=== PATIENT | male | born 1995 | race Caucasian/White ===

== ENCOUNTER 2016-04-26 23:31 | Emergency (ER) | payer OTHER ==
[~2016-04-26] VITALS: Ht 167.6 cm; Wt 59.0 kg
[~2016-04-26 23:31] MED LIST: ADDERALL30 MG PO; CIPROFLOXACIN500 MG PO; IBU-6600 MG PO; MOTRIN400 MG PO; MOTRIN800 MG PO; PROTONIX40 MG PO; PYRIDIUM100 MG PO; QVAR 80MCG/INH7.3 G1 IH; VENTOLIN H0.09 MG/AC IH; ZOFRAN ODT4 MG SL
[2016-04-26 23:39] VITALS: BP 129/103
[2016-04-26] MEDS ORDERED: SILVADENE1% T (23:55)
[2016-04-26] MEDS ORDERED: NAPROSYN500 MG PO (23:55)
== END 2016-04-27 00:13 | disposition home or self-care (01) ==
LOC: ED 23:31
DX: T21.11XA Burn of first degree of chest wall, initial encounter (principal); T20.17XA Burn of first degree of neck, initial encounter; R03.0 Elevated blood-pressure reading, without diagnosis of hypertension; Z79.899 Other long term (current) drug therapy; X12.XXXA Contact with other hot fluids, initial encounter; Y93.9 Activity, unspecified; Y92.9 Unspecified place or not applicable; Y99.9 Unspecified external cause status

== ENCOUNTER 2017-06-09 01:02 | Inpatient (IN) | payer MEDICAID ==
[2017-06-09] VITALS (10 sets, daily range): BP systolic 104–133; BP diastolic 32–88
[~2017-06-09] VITALS: Ht 167.6 cm; Wt 63.7 kg
[~2017-06-09 01:02] MED LIST changes: +NAPROSYN500 MG PO; +SILVADENE1% T
[2017-06-09 01:38] LABS: BASO % 0.3 % (0.0-1.0); EOS # 0.1 10*3/uL (0.0-0.4); EOS % 0.8 % (1.0-4.0); HEMATOCRIT 42.4 % (42.0-52.0); HEMOGLOBIN 15.1 g/dl (14.0-18.0); LYMPH # 2.6 10*3/uL (1.3-4.4); LYMPH % 16.9 % (27.0-41.0); MEAN CELL VOLUME 83.6 fl (80.0-94.0); MEAN CORPUSCULAR HGB 29.8 pg (27.0-31.0); MEAN CORPUSCULAR HGB CONC 35.6 g/dl (33.0-37.0); MONO # 0.8 10*3/uL (0.1-1.0); NEUT # 11.7 10*3/uL (2.3-7.9); NEUT % 76.7 % (47.0-73.0); PLATELET COUNT AUTOMATED 248 10*3/uL (130-400); RED BLOOD COUNT 5.07 10*6/uL (4.50-5.90); RED CELL DISTRI WIDTH 12.9 % (0-14.5); WHITE BLOOD COUNT 15.3 10*3/uL (4.8-10.8)
[2017-06-09 01:53] LABS: ALBUMIN 3.9 gm/dl (3.1-4.5); ALKALINE PHOSPHATASE 62 U/L (45-117); BUN 16 mg/dl (7-24); CHLORIDE 104 mmol/L (98-107); CREATININE 1.23 mg/dL (0.70-1.30); LIPASE 1439 U/L (73-393); POTASSIUM 3.9 mmol/L (3.5-5.1); SGOT/AST 9 IU/L (3-35); SGPT/ALT 18 U/L (12-78); SODIUM 139 mmol/L (136-145); TOTAL PROTEIN 7.1 gm/dL (6.4-8.2)
[2017-06-09 03:09] LABS: BILIRUBIN NEGATIVE (NEGATIVE); BLOOD NEGATIVE (NEGATIVE); CLARITY SL CLOUDY (CLEAR); COLOR YELLOW (YELLOW); GLUCOSE NEGATIVE (NEGATIVE); KETONE TRACE (NEGATIVE); LEUKO ESTERASE NEGATIVE (NEGATIVE); NITRITE NEGATIVE (NEGATIVE); PH 5.5 (5.0-9.0); SPECIFIC GRAVITY 1.015 (1.005-1.030); UROBILINOGEN 0.2 E.U./dl (0.2-1.0)
[2017-06-09 06:52] LABS: BASO % 0.2 % (0.0-1.0); EOS # 0.1 10*3/uL (0.0-0.4); EOS % 0.4 % (1.0-4.0); HEMATOCRIT 41.9 % (42.0-52.0); HEMOGLOBIN 14.3 g/dl (14.0-18.0); LYMPH # 1.3 10*3/uL (1.3-4.4); LYMPH % 10.1 % (27.0-41.0); MEAN CELL VOLUME 84.6 fl (80.0-94.0); MEAN CORPUSCULAR HGB 28.9 pg (27.0-31.0); MEAN CORPUSCULAR HGB CONC 34.1 g/dl (33.0-37.0); MEAN PLATELET VOLUME 10.3 fl (9.6-12.3); MONO # 0.6 10*3/uL (0.1-1.0); MONO % 4.6 % (3.0-9.0); NEUT # 11.1 10*3/uL (2.3-7.9); NEUT % 84.2 % (47.0-73.0); PLATELET COUNT AUTOMATED 210 10*3/uL (130-400); RED BLOOD COUNT 4.95 10*6/uL (4.50-5.90); RED CELL DISTRI WIDTH 12.8 % (0-14.5); WHITE BLOOD COUNT 13.2 10*3/uL (4.8-10.8)
[2017-06-09 07:35] LABS: ALBUMIN 3.8 gm/dl (3.1-4.5); ALKALINE PHOSPHATASE 61 U/L (45-117); BUN 13 mg/dl (7-24); CHLORIDE 105 mmol/L (98-107); CHOLESTEROL 127 mg/dL (<200); CREATININE 1.26 mg/dL (0.70-1.30); POTASSIUM 3.5 mmol/L (3.5-5.1); SGOT/AST 11 IU/L (3-35); SGPT/ALT 16 U/L (12-78); SODIUM 139 mmol/L (136-145); TOTAL PROTEIN 6.7 gm/dL (6.4-8.2); TRIGLYCERIDES 44 mg/dl (<150); VLDL CHOLESTEROL 9 mg/dL (6-40)
[2017-06-09 07:37] LABS: ACT PARTIAL THROMBO TIME 26.1 SECONDS (20.8-31.5)
[2017-06-09 07:44] LABS: HDL CHOLESTEROL 40 mg/dl (40-60); THYROID STIM HORMONE (HS) 0.906 uIU/ml (0.358-4.75)
[2017-06-09 08:16] LABS: VITAMIN D, 25-HYDROXY 17.9 ng/mL (30-100)
[2017-06-09 10:06] LABS: LDL CHOLESTEROL 78 mg/dL (9-159)
[2017-06-09] MEDS ORDERED: PHENERGAN25 M3 PO (16:45)
[2017-06-09] MEDS ORDERED: NORCO 5-325 TA1 EACH PO (16:45)
== END 2017-06-09 16:58 | disposition home or self-care (01) | DRG 341 ==
LOC: ED 01:02 → EDHOLD 02:27 → 4E 02:27
PROVIDERS: Family Medicine Adult Medicine; Student in an Organized Health Care Education/Training Program
PROC: 0DTJ4ZZ Resection of Appendix, Percutaneous Endoscopic Approach (ICD-10-PCS; principal; 2017-06-09)
DX: K35.80 Unspecified acute appendicitis (principal); K85.90 Acute pancreatitis without necrosis or infection, unspecified; Z72.0 Tobacco use; K21.9 Gastro-esophageal reflux disease without esophagitis; J45.909 Unspecified asthma, uncomplicated; F90.9 Attention-deficit hyperactivity disorder, unspecified type; Z83.79 Family history of other diseases of the digestive system; Z84.1 Family history of disorders of kidney and ureter; Z80.8 Family history of malignant neoplasm of other organs or systems; Z83.3 Family history of diabetes mellitus; Z82.49 Family history of ischemic heart disease and other diseases of the circulatory system; Z79.899 Other long term (current) drug therapy; Z71.6 Tobacco abuse counseling

== ENCOUNTER 2018-03-06 04:03 | Emergency (ER) | payer SELFPAY ==
[~2018-03-06] VITALS: Ht 167.6 cm; Wt 61.2 kg
[~2018-03-06 04:03] MED LIST changes: +NORCO 5-325 TA1 EACH PO; +PHENERGAN25 M3 PO
[2018-03-06 04:05] VITALS: BP 133/68
== END 2018-03-06 06:55 | disposition home or self-care (01) ==
LOC: ED 04:03
DX: S02.2XXA Fracture of nasal bones, initial encounter for closed fracture (principal); J45.909 Unspecified asthma, uncomplicated; K21.9 Gastro-esophageal reflux disease without esophagitis; F17.200 Nicotine dependence, unspecified, uncomplicated; W50.0XXA Accidental hit or strike by another person, initial encounter; Y93.89 Activity, other specified; Y92.89 Other specified places as the place of occurrence of the external cause; Y99.8 Other external cause status

== ENCOUNTER 2018-09-06 18:26 | Emergency (ER) | payer OTHER ==
[~2018-09-06] VITALS: Ht 167.6 cm; Wt 59.0 kg
[2018-09-06 18:27] VITALS: BP 114/53
[2018-09-06 19:19] LABS: BASO # 0.1 10*3/uL (0.0-0.1); BASO % 0.8 % (0.0-1.0); EOS # 0.1 10*3/uL (0.0-0.4); EOS % 1.9 % (1.0-4.0); HEMATOCRIT 42.1 % (42.0-52.0); HEMOGLOBIN 14.2 g/dl (14.0-18.0); LYMPH # 2.4 10*3/uL (1.3-4.4); LYMPH % 33.3 % (27.0-41.0); MEAN CELL VOLUME 89.2 fl (80.0-94.0); MEAN CORPUSCULAR HGB 30.1 pg (27.0-31.0); MEAN CORPUSCULAR HGB CONC 33.7 g/dl (33.0-37.0); MONO # 0.5 10*3/uL (0.1-1.0); MONO % 7.3 % (3.0-9.0); NEUT % 55.2 % (47.0-73.0); PLATELET COUNT AUTOMATED 202 10*3/uL (130-400); RED BLOOD COUNT 4.72 10*6/uL (4.50-5.90); RED CELL DISTRI WIDTH 12.6 % (0-14.5); WHITE BLOOD COUNT 7.2 10*3/uL (4.8-10.8)
[2018-09-06 19:33] LABS: ALBUMIN 3.6 gm/dl (3.1-4.5); ALKALINE PHOSPHATASE 65 U/L (45-117); BUN 18 mg/dl (7-24); CHLORIDE 105 mmol/L (98-107); CREATININE 1.03 mg/dL (0.70-1.30); LIPASE 105 U/L (73-393); SGOT/AST 12 IU/L (3-35); SGPT/ALT 20 U/L (12-78); SODIUM 141 mmol/L (136-145); TOTAL PROTEIN 6.3 gm/dL (6.4-8.2)
[2018-09-06] MEDS ORDERED: ZANTAC 150150 MG PO (19:50)
== END 2018-09-06 19:55 | disposition home or self-care (01) ==
LOC: ED 18:26
PROVIDERS: Nurse Practitioner Family
DX: K21.9 Gastro-esophageal reflux disease without esophagitis (principal); F17.200 Nicotine dependence, unspecified, uncomplicated; Z90.49 Acquired absence of other specified parts of digestive tract

== ENCOUNTER 2018-11-23 06:29 | Emergency (ER) | payer SELFPAY ==
[~2018-11-23] VITALS: Ht 167.6 cm; Wt 59.0 kg
[~2018-11-23 06:29] MED LIST changes: +ZANTAC 150150 MG PO
[2018-11-23 06:59] LABS: BILIRUBIN 1+ (NEGATIVE); BLOOD NEGATIVE (NEGATIVE); CLARITY CLEAR (CLEAR); COLOR YELLOW (YELLOW); GLUCOSE NEGATIVE (NEGATIVE); KETONE 1+ (NEGATIVE); LEUKO ESTERASE NEGATIVE (NEGATIVE); NITRITE NEGATIVE (NEGATIVE); PH 5.5 (5.0-9.0); SPECIFIC GRAVITY >= 1.030 (1.005-1.030); UROBILINOGEN 0.2 E.U./dl (0.2-1.0)
[2018-11-23 07:11] LABS: BACTERIA 2+; MUCOUS 2+; RBC 16-20 rbc/hpf (0-2)
[2018-11-23 08:00] VITALS: BP 128/69
== END 2018-11-23 08:20 | disposition home or self-care (01) ==
LOC: ED 06:29
PROVIDERS: Student in an Organized Health Care Education/Training Program
DX: K29.70 Gastritis, unspecified, without bleeding (principal); J45.909 Unspecified asthma, uncomplicated; K21.9 Gastro-esophageal reflux disease without esophagitis; F17.200 Nicotine dependence, unspecified, uncomplicated; Z79.899 Other long term (current) drug therapy

== ENCOUNTER 2018-12-04 12:06 | Emergency (ER) | payer SELFPAY ==
[~2018-12-04] VITALS: Ht 167.6 cm; Wt 59.0 kg
[2018-12-04 12:07] VITALS: BP 132/80
[2018-12-04] MEDS ORDERED: Motrin,Rufen800 MG PO (14:06)
== END 2018-12-04 14:20 | disposition home or self-care (01) ==
LOC: ED 12:06
DX: R09.1 Pleurisy (principal); J45.909 Unspecified asthma, uncomplicated; K21.9 Gastro-esophageal reflux disease without esophagitis; F17.210 Nicotine dependence, cigarettes, uncomplicated

== ENCOUNTER 2019-03-06 01:43 | Emergency (ER) | payer OTHER ==
[~2019-03-06] VITALS: Ht 167.6 cm; Wt 56.7 kg
[2019-03-06 01:43] VITALS: BP 133/71
[~2019-03-06 01:43] MED LIST changes: +Motrin,Rufen800 MG PO
[2019-03-06] MEDS ORDERED: Motrin,Rufen800 MG PO (03:02)
== END 2019-03-06 03:24 | disposition home or self-care (01) ==
LOC: ED 01:43
DX: S80.02XA Contusion of left knee, initial encounter (principal); J45.909 Unspecified asthma, uncomplicated; K21.9 Gastro-esophageal reflux disease without esophagitis; F17.200 Nicotine dependence, unspecified, uncomplicated; Z79.899 Other long term (current) drug therapy; V03.10XA Pedestrian on foot injured in collision with car, pick-up truck or van in traffic accident, initial encounter; Y93.01 Activity, walking, marching and hiking; Y92.488 Other paved roadways as the place of occurrence of the external cause; Y99.8 Other external cause status

== ENCOUNTER 2019-07-22 16:38 | Emergency (ER) | payer OTHER ==
[~2019-07-22] VITALS: Ht 167.6 cm; Wt 59.0 kg
[2019-07-22 17:26] VITALS: BP 123/82
[2019-07-22] MEDS ORDERED: DOXYCYCLINE100 M3 PO (18:26)
[2019-07-22] MEDS ORDERED: TESSALON PERLE100 M1 PO (18:27)
== END 2019-07-22 18:30 | disposition home or self-care (01) ==
LOC: ED 16:38
DX: J40 Bronchitis, not specified as acute or chronic (principal); K21.9 Gastro-esophageal reflux disease without esophagitis; F17.200 Nicotine dependence, unspecified, uncomplicated; Z79.899 Other long term (current) drug therapy

== ENCOUNTER 2019-08-22 15:56 | Emergency (ER) | payer OTHER ==
[~2019-08-22] VITALS: Ht 167.6 cm; Wt 59.0 kg
[~2019-08-22 15:56] MED LIST changes: +DOXYCYCLINE100 M3 PO; +TESSALON PERLE100 M1 PO
[2019-08-22 16:30] LABS: BASO # 0.1 10*3/uL (0.0-0.1); BASO % 0.9 % (0.0-1.0); EOS # 0.2 10*3/uL (0.0-0.4); EOS % 2.6 % (1.0-4.0); HEMATOCRIT 45.7 % (42.0-52.0); LYMPH # 2.8 10*3/uL (1.3-4.4); LYMPH % 40.5 % (27.0-41.0); MEAN CELL VOLUME 88.2 fl (80.0-94.0); MEAN CORPUSCULAR HGB 30.1 pg (27.0-31.0); MEAN CORPUSCULAR HGB CONC 34.1 g/dl (33.0-37.0); MEAN PLATELET VOLUME 9.5 fl (9.6-12.3); MONO # 0.5 10*3/uL (0.1-1.0); MONO % 6.6 % (3.0-9.0); NEUT # 3.4 10*3/uL (2.3-7.9); PLATELET COUNT AUTOMATED 277 10*3/uL (130-400); RED BLOOD COUNT 5.18 10*6/uL (4.50-5.90); WHITE BLOOD COUNT 6.8 10*3/uL (4.8-10.8)
[2019-08-22 16:39] LABS: URINE AMPHETAMINES < 1000 (1000ng/ml); URINE BARBITURATES < 200 (200ng/ml); URINE BENZODIAZEPINES < 200 (200ng/ml); URINE CANNABINOIDS (THC) > 50 (50ng/ml); URINE COCAINE > 300 (300ng/ml); URINE METHADONE < 300 (300ng/ml); URINE OPIATES < 300 (300ng/ml)
[2019-08-22 16:42] LABS: URINE PHENCYCLIDINE < 25 (25ng/ml)
[2019-08-22 16:47] LABS: ALBUMIN 3.9 gm/dl (3.1-4.5); ALKALINE PHOSPHATASE 79 U/L (45-117); BUN 14 mg/dl (7-24); CHLORIDE 105 mmol/L (98-107); CREATININE 1.15 mg/dL (0.70-1.30); POTASSIUM 3.8 mmol/L (3.5-5.1); SGOT/AST 16 IU/L (3-35); SGPT/ALT 20 U/L (12-78); SODIUM 137 mmol/L (136-145); TOTAL PROTEIN 7.6 gm/dL (6.4-8.2)
[2019-08-22 17:02] VITALS: BP 158/92
[2019-08-22 17:05] LABS: BILIRUBIN NEGATIVE (NEGATIVE); BLOOD NEGATIVE (NEGATIVE); CLARITY CLOUDY (CLEAR); COLOR YELLOW (YELLOW); GLUCOSE NEGATIVE (NEGATIVE); KETONE NEGATIVE (NEGATIVE); LEUKO ESTERASE NEGATIVE (NEGATIVE); NITRITE NEGATIVE (NEGATIVE); UROBILINOGEN 0.2 E.U./dl (0.2-1.0)
[2019-08-22 17:06] LABS: BACTERIA TRACE
== END 2019-08-22 17:38 ==
LOC: ED 15:56
PROVIDERS: Nurse Practitioner Family
DX: F14.10 Cocaine abuse, uncomplicated (principal); F12.10 Cannabis abuse, uncomplicated; J45.909 Unspecified asthma, uncomplicated; Z91.018 Allergy to other foods; Z79.899 Other long term (current) drug therapy

== ENCOUNTER 2020-04-10 03:42 | Emergency (ER) | payer OTHER ==
[~2020-04-10] VITALS: Ht 167.6 cm; Wt 59.0 kg
[2020-04-10 03:48] VITALS: BP 121/78
[2020-04-10] MEDS ORDERED: AMOXICILLIN500 M2 PO (04:08)
[2020-04-10] MEDS ORDERED: MOTRIN 600 MG E4 TAB PO (04:08)
== END 2020-04-10 04:24 | disposition home or self-care (01) ==
LOC: ED 03:42
DX: K08.89 Other specified disorders of teeth and supporting structures (principal); J45.909 Unspecified asthma, uncomplicated; K21.9 Gastro-esophageal reflux disease without esophagitis; Z91.018 Allergy to other foods; Z79.899 Other long term (current) drug therapy

== ENCOUNTER 2020-09-21 19:51 | Emergency (ER) | payer OTHER ==
[~2020-09-21] VITALS: Wt 63.5 kg
[~2020-09-21 19:51] MED LIST changes: +AMOXICILLIN500 M2 PO; +MOTRIN 600 MG E4 TAB PO
[2020-09-21 19:52] VITALS: BP 126/75
[2020-09-21] MEDS ORDERED: PENICILLIN VK500 MG PO (20:02)
== END 2020-09-21 20:15 | disposition home or self-care (01) ==
LOC: ED 19:51
DX: K02.9 Dental caries, unspecified (principal); K08.89 Other specified disorders of teeth and supporting structures; Z91.018 Allergy to other foods; Z98.890 Other specified postprocedural states; Z87.891 Personal history of nicotine dependence

== ENCOUNTER 2021-03-11 18:55 | Emergency (ER) | payer OTHER ==
[~2021-03-11] VITALS: Wt 61.2 kg
[~2021-03-11 18:55] MED LIST changes: +PENICILLIN VK500 MG PO
[2021-03-11 21:59] LABS: BASO % 0.3 % (0.0-1.0); EOS % 0.1 % (1.0-4.0); HEMATOCRIT 43.1 % (42.0-52.0); LYMPH # 0.9 10*3/uL (1.3-4.4); LYMPH % 6.5 % (27.0-41.0); MEAN CELL VOLUME 84.7 fl (80.0-94.0); MEAN CORPUSCULAR HGB 29.1 pg (27.0-31.0); MEAN CORPUSCULAR HGB CONC 34.3 g/dl (33.0-37.0); MEAN PLATELET VOLUME 9.9 fl (9.6-12.3); MONO # 0.7 10*3/uL (0.1-1.0); MONO % 4.9 % (3.0-9.0); NEUT # 12.7 10*3/uL (2.3-7.9); NEUT % 87.6 % (47.0-73.0); PLATELET COUNT AUTOMATED 249 10*3/uL (130-400); RED BLOOD COUNT 5.09 10*6/uL (4.50-5.90); RED CELL DISTRI WIDTH 11.8 % (0-14.5); WHITE BLOOD COUNT 14.5 10*3/uL (4.8-10.8)
[2021-03-11 22:18] LABS: ALBUMIN 4.3 gm/dl (3.1-4.5); ALKALINE PHOSPHATASE 64 U/L (45-117); BUN 18 mg/dl (7-24); CHLORIDE 107 mmol/L (98-107); CREATININE 1.03 mg/dL (0.70-1.30); POTASSIUM 3.5 mmol/L (3.5-5.1); SGOT/AST 22 IU/L (3-35); SGPT/ALT 29 U/L (12-78); SODIUM 140 mmol/L (136-145); TOTAL PROTEIN 7.7 gm/dL (6.4-8.2)
[2021-03-12 01:22] VITALS: BP 122/81
== END 2021-03-12 01:57 | disposition short-term general hospital (02) ==
LOC: ED 18:55
PROVIDERS: Emergency Medicine
DX: S02.119A Unspecified fracture of occiput, initial encounter for closed fracture (principal); G93.89 Other specified disorders of brain; I62.1 Nontraumatic extradural hemorrhage; J45.909 Unspecified asthma, uncomplicated; K21.9 Gastro-esophageal reflux disease without esophagitis; X58.XXXA Exposure to other specified factors, initial encounter; Y93.89 Activity, other specified; Y92.89 Other specified places as the place of occurrence of the external cause; Y99.8 Other external cause status

== ENCOUNTER → 2021-04-10 | Outpatient (CLI) | payer OTHER | END | disposition home or self-care (01) | LOC: CT 09:00 | PROVIDERS: ATTEND Neurological Surgery | DX: G08 Intracranial and intraspinal phlebitis and thrombophlebitis (principal) ==

== ENCOUNTER 2022-04-06 00:03 | Emergency (ER) | payer OTHER ==
[~2022-04-06] VITALS: Ht 167.6 cm; Wt 68.0 kg
[2022-04-06 00:25] VITALS: BP 135/93
== END 2022-04-06 05:03 | disposition home or self-care (01) ==
LOC: ED 00:03
DX: S61.210A Laceration without foreign body of right index finger without damage to nail, initial encounter (principal); Z98.890 Other specified postprocedural states; Z87.891 Personal history of nicotine dependence; W22.8XXA Striking against or struck by other objects, initial encounter; Y93.89 Activity, other specified; Y92.89 Other specified places as the place of occurrence of the external cause; Y99.8 Other external cause status

== ENCOUNTER 2023-02-25 06:39 | Emergency (ER) | payer SELFPAY ==
[~2023-02-25] VITALS: Ht 167.6 cm; Wt 68.0 kg
[2023-02-25 06:47] VITALS: BP 144/58
[2023-02-25 07:07] LABS: BASO # 0.1 10*3/uL (0.0-0.1); EOS # 0.2 10*3/uL (0.0-0.4); EOS % 3.1 % (1.0-4.0); HEMATOCRIT 42.5 % (42.0-52.0); LYMPH # 1.6 10*3/uL (1.3-4.4); LYMPH % 30.1 % (27.0-41.0); MEAN CELL VOLUME 90.4 fl (80.0-94.0); MEAN CORPUSCULAR HGB 31.9 pg (27.0-31.0); MEAN CORPUSCULAR HGB CONC 35.3 g/dl (33.0-37.0); MEAN PLATELET VOLUME 9.8 fl (9.6-12.3); MONO # 0.4 10*3/uL (0.1-1.0); MONO % 8.3 % (3.0-9.0); NEUT # 2.9 10*3/uL (2.3-7.9); NEUT % 57.1 % (47.0-73.0); PLATELET COUNT AUTOMATED 243 10*3/uL (130-400); RED CELL DISTRI WIDTH 12.8 % (0-14.5); WHITE BLOOD COUNT 5.2 10*3/uL (4.8-10.8)
[2023-02-25 07:20] LABS: ACT PARTIAL THROMBO TIME 25.9 SECONDS (20.0-32.1); INTERNATIONAL NORM RATIO 0.9 (2.0-3.5)
[2023-02-25 07:33] LABS: ALKALINE PHOSPHATASE 56 U/L (46-116); BUN 16 mg/dl (9-23); CHLORIDE 107 mmol/L (98-107); ETHYL ALCOHOL 5.8 mg/dl (<3); LIPASE 108 U/L (12-53); POTASSIUM 4.4 mmol/L (3.4-5.1); SGPT/ALT 56 U/L (5-49); TOTAL PROTEIN 6.7 gm/dL (6.0-8.0)
[2023-02-25] MEDS ORDERED: OMEPRAZOLE40 MG PO (09:24)
== END 2023-02-25 09:28 | disposition home or self-care (01) ==
LOC: ED 06:39
PROVIDERS: Internal Medicine
DX: K21.9 Gastro-esophageal reflux disease without esophagitis (principal); J45.909 Unspecified asthma, uncomplicated; F90.9 Attention-deficit hyperactivity disorder, unspecified type; Z98.890 Other specified postprocedural states; F17.200 Nicotine dependence, unspecified, uncomplicated; Z79.899 Other long term (current) drug therapy

== ENCOUNTER 2023-07-24 06:43 | Emergency (ER) | payer SELFPAY ==
[~2023-07-24] VITALS: Ht 167.6 cm; Wt 68.0 kg
[~2023-07-24 06:43] MED LIST changes: +OMEPRAZOLE40 MG PO
[2023-07-24 07:05] VITALS: BP 148/79
[2023-07-24] MEDS ORDERED: IBUPROFEN 800 MG TAB PO ONE (07:20)
[2023-07-24] MEDS ORDERED: Metoclopramide Hydrochloride 5 MG TAB PO ONE (07:20)
[2023-07-24] MEDS ORDERED: Oseltamivir Phosphate 75 MG CAP PO ONE (08:00)
[2023-07-24] MEDS ORDERED: TAMIFLU 75MG CA75 MG PO (08:01)
== END 2023-07-24 08:12 | disposition home or self-care (01) ==
LOC: ED 06:43
DX: J10.1 Influenza due to other identified influenza virus with other respiratory manifestations (principal); Z20.822 Contact with and (suspected) exposure to COVID-19; J45.909 Unspecified asthma, uncomplicated; Z91.018 Allergy to other foods; Z98.890 Other specified postprocedural states; F17.200 Nicotine dependence, unspecified, uncomplicated

== ENCOUNTER 2023-11-24 09:46 | Emergency (ER) | payer SELFPAY ==
[~2023-11-24] VITALS: Ht 167.6 cm; Wt 68.0 kg
[~2023-11-24 09:46] MED LIST changes: +TAMIFLU 75MG CA75 MG PO
[2023-11-24 10:05] VITALS: BP 134/79
== END 2023-11-24 10:44 | disposition home or self-care (01) ==
LOC: ED 09:46
DX: B34.9 Viral infection, unspecified (principal); Z20.822 Contact with and (suspected) exposure to COVID-19; F17.200 Nicotine dependence, unspecified, uncomplicated; Z91.018 Allergy to other foods; Z79.899 Other long term (current) drug therapy; Z79.2 Long term (current) use of antibiotics; Z98.890 Other specified postprocedural states

== ENCOUNTER 2024-03-10 14:27 | Emergency (ER) | payer SELFPAY ==
[~2024-03-10] VITALS: Ht 165.1 cm; Wt 68.0 kg
[2024-03-10 14:39] VITALS: BP 135/83
== END 2024-03-10 17:08 | disposition home or self-care (01) ==
LOC: ED 14:27
DX: S63.501A Unspecified sprain of right wrist, initial encounter (principal); J45.909 Unspecified asthma, uncomplicated; F17.200 Nicotine dependence, unspecified, uncomplicated; Z91.018 Allergy to other foods; Z98.890 Other specified postprocedural states; X50.1XXA Overexertion from prolonged static or awkward postures, initial encounter; Y93.K1 Activity, walking an animal; Y92.89 Other specified places as the place of occurrence of the external cause; Y99.8 Other external cause status

== ENCOUNTER 2025-01-21 15:53 | Emergency (ER) | payer SELFPAY ==
[2025-01-21] MEDS ORDERED: TYLE3UD PO (16:26)
[2025-01-21] MEDS ORDERED: AMOXICILLIN500 M2 PO (16:26)
== END 2025-01-21 16:35 | disposition home or self-care (01) ==
LOC: ED 15:53
DX: K02.9 Dental caries, unspecified (principal); F17.210 Nicotine dependence, cigarettes, uncomplicated; Z98.890 Other specified postprocedural states; Z91.018 Allergy to other foods